=== PATIENT | male | born 1965 | race Caucasian/White ===

== ENCOUNTER 2016-11-07 16:18 | Emergency (ER) | payer OTHER ==
[2016-11-07 14:26] LABS: ASCORBIC ACID (UR NOT ORDER) NEG (NEG); BILIRUBIN, URINE NEGATIVE (NEG); ER URINALYSIS TAT 0 Hrs 15 Mins; KETONE, URINE NEGATIVE (NEG); LEUKOCYTE ESTERASE(NOT OR NEG (NEG); NITRITE (URINE) NEG (NEG); WBC (NOT ORDERED) (RFLEX) < 1 (0-5)
[2016-11-07 14:31] LABS: BASOPHILS 0.6 %; BASOPHILS ABSOLUTE 0.04 10/3/uL (0.0-0.16); EOSINOPHILS 2.1 %; EOSINOPHILS ABSOLUTE 0.15 10/3/uL (0.0-0.53); ER CBC TAT 0 Hrs 08 Mins; HEMATOCRIT 45.6 % (40.0-51.0); IMMATURE GRANULOCYTES 0.1 %; IMMATURE GRANULOCYTES ABSOLUTE 0.01 10/3/uL (0.0-0.11); LYMPHOCYTES ABSOLUTE 3.02 10/3/uL (0.67-4.30); MANUAL DIFF NO %; MEAN CORPUS HGB CONC 35.1 g/dL (32.0-36.0); MEAN CORPUSCULAR HEMOGLOB 30.4 pg (26.0-34.0); MEAN CORPUSCULAR VOLUME 86.7 fL (80-100); MEAN PLATELET VOLUME 11.2 fL (9.2-13.0); MONOCYTES ABSOLUTE 0.49 10/3/uL (0.21-1.20); NEUTROPHILS 47.2 %; NEUTROPHILS ABSOLUTE 3.31 10/3/uL (2.02-8.40); PLATELET COUNT 118 10/3/uL (150-400); RBC DISTRIBUTION WIDTH 12.8 % (12.0-16.0); RED CELL COUNT 5.26 10/6/uL (4.7-6.1)
[2016-11-07 14:37] LABS: PARTIAL THROMBO TIME 27.7 SEC (22.5-37.2); PROTIME (NOT ORD) 13.3 SEC (12.0-14.5)
[2016-11-07 14:46] LABS: A/G RATIO 0.8 (0.7-1.9); ALBUMIN 3.5 G/DL (3.5-5.0); ALKALINE PHOSPHATASE 116 U/L (45-117); BUN (BLOOD UREA NITROGEN) 7 MG/DL (6-23); CALCIUM, SERUM 9.2 MG/DL (8.5-10.4); CHLORIDE, SERUM 104 MMOL/L (96-112); CO2 (CARBON DIOXIDE) 26 MMOL/L (24-34); CREATININE 0.66 MG/DL (0.70-1.30); GFR AFRICAN AMERICAN 132 ML/MIN (>=60); GFR NON AFRICAN AMERICAN 114 ML/MIN (>=60); GLOBULIN 4.4 G/DL (2.5-4.1); GLUCOSE, SERUM 117 MG/DL (60-99); POTASSIUM, SERUM 3.9 MMOL/L (3.5-5.3); SGOT(AST) 52 U/L (5-40); SGPT(ALT) 89 U/L (5-65); SODIUM, SERUM 136 MMOL/L (135-148); TOTAL BILIRUBIN 0.5 MG/DL (0-1.2); TOTAL PROTEIN 7.9 G/DL (6.0-8.5); TROPONIN I <0.02 NG/ML (<0.05)
[~2016-11-07 16:18] MED LIST: ALEVE220 MG PO; DENIES MEDS; GLUCPH PO; METHOC750B PO; OTC ANTACID PO; SUCR PO; ZANTAC150 MG PO
== END 2016-11-07 16:30 | disposition home or self-care (01) ==
LOC: ER 16:18
PROVIDERS: Emergency Medicine; Nurse Practitioner
DX: M54.5 Low back pain (principal); Z79.84 Long term (current) use of oral hypoglycemic drugs; Z79.899 Other long term (current) drug therapy
CPT/HCPCS: 74000; 74176; 80053; 81001; 83690; 84484; 85025; 85610; 85730; 93005; 96374; 99284; J1170; J2405